=== PATIENT | male | born 1995 | race Caucasian/White ===

== ENCOUNTER 2022-01-10 08:26 | Emergency (ER) | payer OTHER ==
[~2022-01-10] VITALS: Ht 185.4 cm; Wt 84.0 kg
[2022-01-10 09:30] VITALS: BP 134/87
[2022-01-10 09:45] VITALS: BP 142/91
[2022-01-10 10:04] VITALS: BP 142/91
== END 2022-01-10 10:24 | DRG 605 ==
LOC: ED 08:26
DX: S61.210A Laceration without foreign body of right index finger without damage to nail, initial encounter (principal); W31.89XA Contact with other specified machinery, initial encounter; Y92.89 Other specified places as the place of occurrence of the external cause; Y99.0 Civilian activity done for income or pay

== ENCOUNTER 2025-01-14 10:46 | Emergency (ER) | payer OTHER ==
[2025-01-14] VITALS (11 sets, daily range): BP systolic 111–150; BP diastolic 68–99
[~2025-01-14] VITALS: Ht 185.4 cm; Wt 101.0 kg
[2025-01-14 11:18] LABS: BASO% 1.3 % (0-3); EOS% 1.4 % (0-8); IMMATURE GRANULOCYTES 0.2 % (0.0-5.0); LYMPH% 41.1 % (15-41); MEAN CORPUSCULAR HGB 28.8 pG CALC (26.0-32.0); MEAN CORPUSCULAR HGB CONC 33.3 g/dL CAL (32.0-36.0); MONO% 9.3 % (2-13); NEUT# 2.62 thou/uL (1.82-7.42); NEUT% 46.7 % (42-76); RED BLOOD COUNT 5.46 mill/uL (4.70-6.10); RED CELL DISTRI WIDTH 12.4 % (11.5-15.5)
[2025-01-14 11:19] LABS: HEMATOCRIT 47.1 % (39.0-50.0); HEMOGLOBIN 15.7 g/dl (14.0-18.0); MEAN CELL VOLUME 86.3 fL CALC (80.0-100.0)
[2025-01-14 11:25] LABS: ALBUMIN 4.6 g/dL (3.2-5.0); BILIRUBIN, TOTAL 1.1 mg/dL (0.2-1.3); CREATININE 0.9 mg/dL (0.7-1.3); POTASSIUM 3.9 mmol/l (3.5-5.1); TOTAL PROTEIN 7.8 g/dL (6.3-8.2)
[2025-01-14 11:58] LABS: URINE BILIRUBIN - DIPSTICK Negative (NEGATIVE); URINE BLOOD DIPSTICK Negative (NEGATIVE); URINE COLOR Yellow; URINE GLUCOSE - DIPSTICK Negative (NEGATIVE); URINE KETONE Trace mg/dL (NEGATIVE); URINE LEUK ESTERASE Negative (NEGATIVE); URINE NITRITE - DIPSTICK Negative (Negative); URINE PROTEIN - DIPSTICK Negative (NEG-TRACE); URINE SPECIFIC GRAVITY 1.015; URINE UROBILINOGEN - DIPSTICK 0.2 E.U./dL (0.2)
[2025-01-14] MEDS ORDERED: DiphenhydrAMINE HCL 50 MG/ML SDV IV ONE (12:00)
[2025-01-14] MEDS ORDERED: METOCLOPRAMIDE HCL 10 MG/2 ML SDV IV ONE (12:00)
[2025-01-14] MEDS ORDERED: KETOROLAC TROMETHAMINE 30 MG/ML SDV IV ONE (12:00)
== END 2025-01-14 13:18 | disposition home or self-care (01) | DRG 103 ==
LOC: ED 10:46
PROVIDERS: Family Medicine
DX: R51.9 Headache, unspecified (principal); H53.8 Other visual disturbances
CPT/HCPCS: J1200; J2765